=== PATIENT | female | born 1995 | race Caucasian/White ===

== ENCOUNTER 2018-03-13 23:10 | Emergency (ER) | payer OTHER ==
[~2018-03-13] VITALS: Ht 175.3 cm; Wt 127.0 kg
[2018-03-13] MEDS ORDERED: IBUPROFEN400 MG PO (23:18)
[2018-03-13] MEDS ORDERED: EFFEXOR XR150 MG PO (23:19)
[2018-03-13] MEDS ORDERED: ATIVAN1 MG PO (23:19)
[2018-03-14] MEDS ORDERED: NORCO 5-325 TA1 EACH PO (12:10)
[2018-03-14] MEDS ORDERED: ZOFRAN ODT4 MG PO (12:48)
[2018-03-14] MEDS ORDERED: LEVAQUIN500 MG PO (12:48)
[2018-03-14] MEDS ORDERED: IBUPROFEN800 MG PO (12:48)
== END 2018-03-13 23:56 | disposition home or self-care (01) ==
LOC: ED 23:10
DX: H60.92 Unspecified otitis externa, left ear (principal); F17.200 Nicotine dependence, unspecified, uncomplicated; Z88.0 Allergy status to penicillin; Z79.899 Other long term (current) drug therapy
CPT/HCPCS: 99282